=== PATIENT | female | born 1985 | race Caucasian/White ===

== ENCOUNTER 2018-06-28 21:25 | Inpatient (IN) | payer BC ==
[2018-06-28 22:29] LABS: Bilirubin Negative (Negative); Blood, Urine Negative (Negative); Clarity CLEAR (Clear); Glucose, Urine (Dipstick) Negative (Negative); Leukocyte Trace (Negative); Nitrite Negative (Negative); Protein, Urine (Dipstick) Negative (Neg-Trace); Specific Gravity, Urine 1.005 (1.002-1.036); pH, Urine 6.5 (5.0-9.0)
[2018-06-28 22:31] LABS: Bacteria/HPF None Seen HPF (None Seen); Hyaline Casts/LPF 0-3 HYALINE CAST LPF (0-3 Hyaline); Pathc Cast-AUWi Flag 0.43 (0-2.49); Squamous Epithelial 0-3 HPF (0-3)
[2018-06-28 22:32] LABS: Yeast-AUWi Flag 41.1 (0-25.0)
[2018-06-28 22:41] LABS: RBC/HPF 0-3 HPF (0-3); Yeast-All Forms None Seen HPF (None Seen)
[2018-06-28 23:02] LABS: #Basophils 0.1 thou/uL (0.0-0.2); #Eosinphils 0.2 thou/uL (0.0-0.7); #Lymphocytes 2.8 thou/uL (1.20-3.40); #Monocytes 0.4 thou/uL (0.11-0.59); #Neutrophils 5.8 thou/uL (1.40-6.50); %Basophils 0.8 % (0.0-1.0); %Eosinophils 2.1 % (0.0-10.0); %Lymphocytes 30.8 % (21.0-51.0); %Monocytes 3.8 % (0.0-10.0); %Neutrophils 62.5 % (42.0-75.0); Hemoglobin 13.6 g/dL (12.0-16.0); Mean Corpuscular HGB CONC 34.2 g/dL (32.0-36.0); Mean Corpuscular Hemoglobin 32.5 pg (27.0-31.0); Mean Corpuscular Volume 94.9 fL (78.0-98.0); Platelet Count 318 thou/uL (130-400); RBC Distribution Width 11.8 % (11.5-14.5); Red Blood Cell (RBC) Count 4.17 mill/uL (4.20-5.40); White Blood Cell (WBC) Count 9.2 thou/uL (4.8-10.8)
[2018-06-28 23:08] LABS: PTT 29.6 SEC (22.9-36.1); Prothrombin Time 13.3 SEC (12.0-14.7)
[2018-06-28 23:23] LABS: ALT (SGPT) 30 U/L (8-55); AST (SGOT) 19 U/L (5-34); Albumin 3.5 g/dL (3.5-5.0); Alkaline Phosphatase 116 U/L (40-150); Anion Gap 12 mmol/L (10-20); BUN (Urea Nitrogen) 19 mg/dL (7.0-18.7); Bilirubin, Total 0.3 mg/dL (0.2-1.2); CK (CPK) 83 U/L (29-168); Calc. Creatinine Clearance 0 mL/min (70-130); Calcium 9.3 mg/dL (7.8-10.44); Carbon Dioxide 25 mmol/L (22-29); Chloride 106 mmol/L (98-107); Estimated GFR-MDRD 82; Globulin 3.8 g/dL (2.4-3.5); Glucose 113 mg/dL (70-105); Potassium 3.9 mmol/L (3.5-5.1); Protein, Total 7.3 g/dL (6.0-8.3); Sodium 139 mmol/L (136-145)
--- NOTE | 2018-06-28 23:30 | ULT ---
LEFT LOWER EXTREMITY VENOUS DOPPLER: HISTORY: Pain and edema. COMPARISON: None. TECHNIQUE: Real-time, ramírez-scale, color Doppler, and spectral analysis of the left lower extremity venous system was performed. The common femoral, femoral, portion of the greater saphenous, and deep femoral vein s, as well as the popliteal and posterior tibial veins, were interrogated. FINDINGS: Normal flow, augmentation, and compression. IMPRESSION: No deep venous thrombosis. POS: [facility]
--- NOTE | 2018-06-28 23:31 | CT ---
CT BRAIN WITHOUT CONTRAST: HISTORY: Elevated blood pressure. . COMPARISON: None. FINDINGS: No acute hemorrhage or infarct. No midline shift or mass effect. Ventricular size and extraaxial CS F spaces are normal. Globes are normal. The calvarium is intact. The paranasal sinuses and mastoid s are clear. IMPRESSION: No acute intracranial abnormality. POS: [facility]
[2018-06-28] MEDS ORDERED: Acetaminophen 500 MG TAB ONE (23:34)
[2018-06-28] MEDS ORDERED: Magnesium 2 GM/NS 0.9% 50 ML 2 GM in Premix Bag 1 BAG IVPB SCH (23:45)
[2018-06-29] MEDS ORDERED: Acetaminophen 500 MG TAB PO PRN (00:38)
[2018-06-29] MEDS ORDERED: Promethazine HCl 25 MG/ML VIAL IM PRN (00:38)
[2018-06-29] MEDS ORDERED: Ondansetron HCl/PF 4 MG/2 ML Vial IVP PRN (00:38)
[2018-06-29] MEDS ORDERED: Zolpidem Tartrate 5 MG TAB PO PRN (00:38)
[2018-06-29] MEDS ORDERED: Calcium Gluconate 4.6 MEQ in Sodium Chloride 0.9% 100 ML IVPB PRN (00:38)
[2018-06-29] MEDS ORDERED: Labetalol HCl 100 MG/20 ML VIAL SLOW IVP PRN (00:44)
[2018-06-29] MEDS: Magnesium Sulfate 20 gm/500 ml 20 GM/500 ML BAG IVPB SCH ×3 (02:00→20:50)
[2018-06-29] MEDS: Lactated Ringer's 1,000 ML IV SCH ×2 (02:00→15:12)
--- NOTE | 2018-06-29 02:13 | HP ---
DATE OF ADMISSION: 06/29/2018 ATTENDING PHYSICIAN: Regan Swenson MD ADMITTING PHYSICIAN: Michael Broderick MD CHIEF COMPLAINT: Headache and blurry vision at home. HISTORY OF PRESENT ILLNESS: Ms. Rome Courtney is a 32-year-old , who is statu s post repeat section 10 days ago, who presents now with a 2-day history of headache and a h istory of blurry vision since this afternoon. She has been evaluated in the emergency room and here, she was found to have a normal CT of the head. She has been loaded with 2 grams of magnesium. She denies associated right upper quadrant pain, nausea, or vomiting. PAST OBSTETRICAL HISTORY: Includes one vaginal delivery for a preeclampsia followed by four sections, the most recent done 10 days ago. PAST MEDICAL HISTORY: None. PAST SURGICAL HISTORY: x4. CURRENT MEDICATIONS: vitamins and hydrocodone. ALLERGIES: No known allergies. SOCIAL HISTORY: Denies tobacco, alcohol, or drug use. FAMILY HISTORY: Remarkable for hypertension in her mother and her maternal aunts. REVIEW OF SYSTEMS: Positive for a headache and blurry vision in her right eye. She denies nausea, v omiting, fever, or chills. PHYSICAL EXAMINATION: VITAL SIGNS: Blood pressure as I evaluate her in the ER, now is 158/97. LUNGS: Clear to auscultation. CARDIOVASCULAR: Regular rate and rhythm. ABDOMEN: Soft and nontender. There is no guarding or rebound. LABORATORY DATA: CBC shows a white count of 9.2, hemoglobin of 13.6, hematocrit of 39.6, platelet co unt of 318,000. PT and PTT are 13.3 and 29.6 respectively. Chemistries show a sodium of 139 and pot assium of 3.9, chloride 106, carbon dioxide 25, creatinine 0.81, BUN 19, glucose is 113, total biliru bin 0.3. AST and ALT are 19 and 30 respectively. Alkaline phosphatase is 116. Urinalysis shows a s pecific gravity of 1.005, negative for protein, negative glucose, negative ketones, negative blood, n egative nitrites, negative bilirubin. ASSESSMENT: 1. Status post section 10 days ago. 2. Late onset preeclampsia versus chronic hypertension. PLAN: At this time, the patient will be admitted to Labor and Delivery and be placed on magnesium pr ophylactically for the next 24 hours. I will also use labetalol for blood pressure control should sh e need it. The benefits of this approach have been discussed with the patient and her and th colby wished to proceed.
[2018-06-29 02:32] VITALS: BMI 41.0
[2018-06-29] MEDS: Acetaminophen 500 MG TAB PO PRN ×2 (09:14→18:04)
[2018-06-29] MEDS ORDERED: Witch Hazel-Glycerin 1 EACH JAR TOP PRN (15:07)
[2018-06-29] MEDS ORDERED: Preparation H Suppository PR PRN (15:07)
[2018-06-30] MEDS: Lactated Ringer's 1,000 ML IV SCH ×3 (04:15→09:17)
[2018-06-30 08:08] VITALS: BP 135/90; TEMP 98.1
--- NOTE | 2018-06-30 08:18 | PDOC.EVN ---
Event Note - Event Note Event Note: S: Patient feeling better this morning. JOHNSON resolved. MgSO4 stopped early this morning. Patient would like to go home. O: mostly normal to mild range BPs with occasional severe range in 160s. Gen - AAO, NAD Chest - nonlabored Labs - unremarkable A/P: 32 y/o POD#11 admitted for preeclampsia with severe features. Now s/p MgSO4 x 24 hours. BPs overnight mostly normal to mild range with occasional severe but not sustained/treatable. Patient would really like to go home today but we recommend continued observation of BPs at this time. Discussed with Dr. Singh who will reevaluate.
--- NOTE | 2018-06-30 08:31 | PDOC.EVN ---
Event Note - Event Note Event Note: call center director OBGYN: Discharge note: Assumed care this am at 0800. Briefed on patient's admission. BPs and labs reviewed. Patient desires discharge. I have discussed with her importance of in- patient BP monitoring. Patient states she must go home due to children's entertainer issues. OK for release as informed decision making process done by me. She will have BP check in 2 days at office. Dictation done by me.
--- NOTE | 2018-06-30 08:41 | DIS ---
DATE OF EVALUATION: At bedside is 06/30/2018 DATE OF ADMISSION: 06/29/2018 DATE OF DISCHARGE: 06/30/2018 ATTENDING: With Dr. Michael Broderick as the attending on record. PRINCIPAL DIAGNOSES: 1. readmission. 2. Elevated blood pressure/severe preeclampsia. 3. Status post magnesium sulfate. HOSPITAL COURSE: In brief, this is a patient, who was admitted by Dr. Michael Broderick, as a patient, who was about 11 days, who was noted to have elevated blood pressures in the emergency department and was started on magnesium sulfate. She continued on magnesium sulfate in Labor and Delivery, and continued to have blood pressure observation. I evaluated the patient after Dr. Autumn Medrano evaluated the patient first on 06/30/2018 at bedside, in room 334. The patient's blood pressures are not persistently elevated with few sporadic and isolated systolic pressures of 160. She is asymptomatic. I have discussed with her the benefit of inpatient observation for blood pressure monitoring and possible initiation of antihypertensive medications. Due to child and family services worker issues, the patient has elected to go home after our brief discussion on the potential morbidity of untreated hypertension. The patient has agreed to follow up in 48 hours at the [facility] [place], for blood pressure evaluation. Signs or symptoms of severe preeclampsia were given. I have also discussed the plan with the patient's nurse and the nursing team. She is discharged home in good and stable condition after I have seen the patient and after I have recommended in-house continued observation. The patient is being released per her own decision to monitor blood pressure as an outpatient. RANDY
== END 2018-06-30 10:20 | disposition home or self-care (01) | DRG 776 ==
LOC: ERS 21:25 → L&D 06-29 00:20 → 3SW 06-30 03:43
PROVIDERS: ADMIT Obstetrics & Gynecology; ATTEND Obstetrics & Gynecology
DX: O14.15 Severe pre-eclampsia, complicating the puerperium (principal)
CPT/HCPCS: 51702; 70450; 80053; 81003; 81015; 82550; 85025; 85610; 85730; 93005; 96361; 96365; A4216; J3475